=== PATIENT | male | born 1990 | race Caucasian/White ===

== ENCOUNTER 2017-03-10 04:31 | Inpatient (IN) | payer OTHER ==
[~2017-03-10] VITALS: Ht 182.9 cm; Wt 84.5 kg
--- NOTE | ~2017-03-10 | DS ---
Unit #: [id number] #: [id number] Patient: KATHERNIE OCAMPO [id number] [facility] [address]. [place], [place] [address] [id number] I MR#: [id number] NAME: KATHERINE OCAMPO. ROOM: 218 Age: 26 Sex: M Admission Date: 03/10/2017 : 1990 Discharge Date: 03/13/2017 Attending Physician: Christ Nogueira M.D. Primary Care Physician: Primary Care Physician No DISCHARGE SUMMARY REASON FOR ADMISSION Heroin overdose/acute hypoxic respiratory failure. HISTORY OF PRESENT ILLNESS/HOSPITAL COURSE Please see H and P for complete details. Essentially, the patient presented to outside facility, found unresponsive likely secondary to heroin overdose. He was given Narcan and became agitated. Airway was compromised. Subsequently, the patient was sedated, intubated, and transferred to [facility] for further evaluation. 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 The patient was gradually extubated to room air. He has been otherwise stable. He was appropriately treated for aspiration pneumonia/pneumonitis with IV Zosyn which has been transitioned to p.o. Augmentin at the time of discharge. Appropriate electrolytes or corrections were done. Extensive counseling was also done with the patient in regard to dangers and harms of heroin. He states that tomorrow, March 18, 2017, he will be checking into [facility] drug recovery program. He has already discussed that with his parents as well. He is well aware of the overall long-term harm of heroin overdose including possible if he continues down current path. The patient currently is clinically stable for discharge. FINAL DISCHARGE DIAGNOSES 1. Acute hypoxic respiratory failure, now resolved. 2. Heroin overdose. 3. Presumed aspiration pneumonitis/pneumonia. FINAL DISCHARGE MEDICATIONS Augmentin 875 mg p.o. b.i.d. x5 days. CONDITION ON DISCHARGE Stable. DISCHARGE DISPOSITION Home. Please note the patient's overall long-term prognosis is poor if he continues to use heroin and/or IV drugs. His life expectancy is likely less than 6 months, and the patient is well aware. Dictated by... Christ Nogueira M.D. ISN/shelly Unit #: [id number] #: [id number] Patient: KATHERINE OCAMPO TD: 03/16/2017 09:30 JOB #: [id number] DISCHARGE SUMMARY Page 1 of 1 X Christ Nogueira MD DISCHARGE SUMMARY
--- NOTE | ~2017-03-10 | CO ---
Unit #: [id number] #: [id number] Patient: KATHERINE EVANS [id number] [address] [place], [place] [address] [id number] I MR#: [id number] NAME: KATHERINE EVANS. ROOM: [facility] Age: 26 Sex: M Admission Date: 03/10/2017 : 1990 Attending Physician: Christ Nogueira M.D. Primary Care Physician: No Primary Care Physician CONSULTATION REPORT Mr. Evans is a 26-year-old white male with a history of polysubstance abuse, who was admitted to the Intensive Care Unit at [facility] on a ventilator for respiratory failure. We were asked to see. Apparently he was dropped outside the emergency room at [facility]. Then, the emergency room was called where they found him in agonal respirations. He was given intranasal Narcan and taken into the code room, given 2 mg of IV Narcan and subsequently intubated. His chest x-ray initially showed no infiltrates. The followup chest x-ray post intubation showed ET-tube in good position, now with bilateral infiltrates favoring the upper and mid lung herr. He was then admitted to the emergency room at [facility]. Lab work here revealed arterial blood gases this morning 7.31, pCO2 of 48, pO2 of 130 on 100%, 5 of PEEP, tidal of 550, rate of 14, patient rate of 22. Chemistries - creatinine 0.8, BUN 12, glucose 93, calcium 7.5. AST and ALT 60 and 66. Alk. phos. normal. Troponin less than 0.03. Urine drug screen positive for amphetamines and opiates. Alcohol and salicylate and aspirin unremarkable. White blood cell count 8700, hematocrit 44, platelet count 147. Previous hepatitis panel negative. HIV negative in May 2014. No urinalysis was done. Apparently blood cultures were done at [facility]. PAST MEDICAL HISTORY Not possible from the patient. No family present. According to electronic medical records - past surgical history of appendectomy. Medical problems related to polysubstance abuse and nicotine dependence. SOCIAL HISTORY Unknown. Apparently smokes tobacco. Uses heroin. FAMILY HISTORY Unknown. Patient unable to give history. ALLERGIES No known allergies. REVIEW OF SYSTEMS Not possible, patient intubated. FAMILY HISTORY Unknown, patient intubated. PHYSICAL EXAMINATION GENERAL: White male, orally intubated, sedated on ventilator. Unit #: [id number] #: [id number] Patient: KATHERINE EVANS VITAL SIGNS: Blood pressure 132/74, pulse 92, respiratory rate 17, afebrile. HEENT: Normocephalic, atraumatic. Pupils equal, round, reactive. Sclerae nonicteric. Orally intubated. NG-tube in place. NECK: Supple. Trachea midline. No cervical or supraclavicular lymphadenopathy. LUNGS: Fairly clear bilaterally. CARDIAC: Regular rate and rhythm. Could not appreciate murmur, rub or gallop. ABDOMEN: Nontender. Bowel sounds present. No hepatosplenomegaly. EXTREMITIES: Without clubbing, cyanosis or edema. NEURO: Sedated on vent. Apparently, according to nursing, he had been agitated, moving all extremities. SKIN: Warm and dry. He has an abrasion posteriorly and has a right femoral line and left external jugular line and a peripheral line. DIAGNOSTIC STUDIES LABORATORY: Laboratory studies as noted and reviewed. IMAGING: Chest x-ray reviewed. IMPRESSION 1. Heroin overdose. 2. Acute respiratory failure, hypoxic respiratory failure. 3. Bilateral infiltrates. 4. Possible aspiration. 5. CHF versus narcotic related noncardiac edema. PLAN Vent support adjustment to maintain adequate oxygenation and ventilation. Sedation for now. Wean O2 as tolerated. Wean vent with improvement. Will check echocardiogram, BNP. Will cover with antibiotics and possible aspiration pneumonia. Will check sputum C and S. DVT and ulcer prophylaxis. Further recommendations pending this. Dictated by... Hector Shell M.D. SHARONDA/olga TD: 03/10/2017 13:07 JOB #: [id number] CONSULTATION REPORT Page 1 of 1 X Hector Shell MD X CONSULTATION REPORT
--- NOTE | ~2017-03-10 | CR72 ---
[facility] A Service of [facility] & [facility] RADIOLOGY TEXT RESULTS PATIENT: KATHERINE OCAMPO LOCATION: [place] [address] : [birth year] UNIT #: [id number] AGE: [address]: Christ Nogueira MD SEX: M ORDER DR: [id number] [facility] [address] [place], [place] [address] [id number] I MR#: [id number] Acc #: [id number] NAME: KATHERINE OCAMPO. : 1990 SEX: M STUDY DATE/TIME: 03/12/2017 4:35 UNIT: [facility] ROOM: [facility] STUDY DESCRIPTION: CR Chest Single View Portable Attending Physician: Christ Nogueira M.D. Ordering Physician: Physician Non-Staff Primary Care Physician: Primary Care Physician No MEDICAL IMAGING REPORT This report is preliminary unless electronic signature is present EXAM Chest x-ray, 03/12/2017 HISTORY Respiratory failure. Extubation. TECHNIQUE AP portable chest x-ray FINDINGS The exam shows shallow lung expansion following extubation since yesterday. NG tube has also been removed. Mildly increased interstitial markings throughout both lungs, improved since 03/10/2017 and 03/11/2017. Heart size normal. No pneumothorax or visible pleural effusion. IMPRESSION 1. Shallow lung expansion following extubation. 2. Mildly increased interstitial markings, improved since prior exams. Dictated by... Tutu Han M.D. THIS IS AN ELECTRONICALLY VERIFIED REPORT Tutu Han M.D. at 03/12/2017 3:54 PM Andres TD: 03/12/2017 12:50 JOB #: [id number] MEDICAL IMAGING REPORT Page 1 of 1 COPY
--- NOTE | ~2017-03-10 | CR72 ---
[facility] A Service of [facility] & [facility] RADIOLOGY TEXT RESULTS PATIENT: KATHERINE OCAMPO LOCATION: [address] : [birth year] UNIT #: [id number] AGE: [address]: Christ Nogueira MD SEX: M ORDER DR: [id number] [facility] [address]. [place], [place] [address] [id number] I MR#: [id number] Acc #: [id number] NAME: KATHERINE OCAMPO. : 1990 SEX: M STUDY DATE/TIME: 03/11/2017 10:27 UNIT: [facility] ROOM: [facility] STUDY DESCRIPTION: CR Chest Single View Portable Attending Physician: Christ Nogueira M.D. Ordering Physician: Hector Shell M.D. Primary Care Physician: No Primary Care Physician MEDICAL IMAGING REPORT This report is preliminary unless electronic signature is present EXAM Portable chest HISTORY Shortness of air for a day, wean protocol. COMPARISON 03/10/2017 FINDINGS Endotracheal tube remains in satisfactory position. Interval placement of a nasogastric tube with decompression of the stomach. Distal tip well below the GE junction. Marked improvement in bilateral airspace opacities which may represent resolving pulmonary edema or ARDS. Heart and mediastinum unremarkable. No airspace disease or sizeable effusions. No pneumothorax. Dictated by... Rubina Burgess M.D. THIS IS AN ELECTRONICALLY VERIFIED REPORT Rubina Burgess M.D. at 03/11/2017 5:02 PM ANDREY/christal TD: 03/11/2017 14:59 JOB #: [id number] MEDICAL IMAGING REPORT Page 1 of 1 COPY
--- NOTE | ~2017-03-10 | HP ---
Unit #: [id number] #: [id number] Patient: KATHERINE OCAMPO [id number] [facility] [address] [place], [place] [address] [id number] I MR#: [id number] NAME: KATHERINE OCAMPO. ROOM: [facility] Age: 26 Sex: M Admission Date: 03/10/2017 : 1990 Attending Physician: Christ Nogueira M.D. Primary Care Physician: No Primary Care Physician HISTORY AND PHYSICAL REASON FOR ADMISSION Acute hypoxic respiratory failure, aspiration pneumonitis/pneumonia, heroin overdose. HISTORY OF PRESENT ILLNESS The patient is currently intubated on vent support and sedated. Therefore, this history of present illness as well as review of systems has been done after chart review and discussion with staff. There are no family members who are present at bedside currently. The patient is a 26-year-old male, apparently who was with several friends. He was found to be unconscious after taking several drugs. Details are unclear. They tried to place the patient in and around ice trying to wake him up. He did not wake up. He was subsequently dropped off at [facility]. There he received Narcan as well as appropriate supportive therapy. He became awake and slightly agitated. He also had several emesis episodes. He was subsequently sedated and placed on Unasyn and placed on ventilatory support. The decision was made for the patient to be transferred to [facility] ICU for further evaluation. PAST MEDICAL HISTORY Prior history of substance abuse. Hospital admission to [facility] in 2013. PAST SURGICAL HISTORY Appendectomy. SOCIAL HISTORY Positive illicit drug use. FAMILY HISTORY Unable to be obtained and relatively noncontributory. ALLERGIES No known drug allergies. HOME MEDICATIONS None. REVIEW OF SYSTEMS Limited secondary to current condition. PHYSICAL EXAMINATION Unit #: [id number] #: [id number] Patient: KATHERINE OCAMPO GENERAL: The patient is intubated and sedated, on vent support. VITALS: At outside facility, temperature 99, pulse 138, blood pressure 147/121. HEENT: Atraumatic, normocephalic. Eyes, normal conjunctivae. Pinpoint pupils. NECK: Supple. LUNGS: Clear. Diminished in the lower lungs. HEART: S1 and S2 without murmur. DIAGNOSTIC STUDIES LABORATORY: Initial studies performed at outside facility showed ABG with pO2 36, lactic acid 3.4, pH 7.29, potassium 2.9, blood glucose 350, ALT and ALT 75 and 78, white blood cell count 15.8. Urine tox positive for amphetamines, opioids. Negative for alcohol. Creatinine level at outside facility 1.13. ASSESSMENT 1. Acute hypoxic respiratory failure, likely secondary to heroin overdose. 2. Aspiration pneumonitis/pneumonia, probable. 3. Hypokalemia. 4. Elevated blood sugar, unclear of diabetes history. 5. Elevated LFTs, likely shock liver. 6. Elevated lactic acid level/sepsis. PLAN Admission. ICU placement. 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 Routine laboratory studies. A1c. Accu-Cheks q.6 h. while on the vent. Await other family members to ascertain details. Once extubated, psychiatric consult. Possible [facility] evaluation. Blood cultures. Further hospital course pending above evaluation. PROGNOSIS Guarded. Dictated by Mariana Tafoya/carmenza TD: 03/10/2017 11:37 JOB #: [id number] HISTORY AND PHYSICAL Page 1 of 1 X Christ Nogueira MD X HISTORY AND PHYSICAL
--- NOTE | ~2017-03-10 | CT71 ---
[facility] A Service of [facility] & [facility] RADIOLOGY TEXT RESULTS PATIENT: KATHERINE OCAMPO LOCATION: [address] : [birth year] UNIT #: [id number] AGE: [address]: Christ Nogueira MD SEX: M ORDER DR: [id number] [facility] [address] [facility]. [place], [place] [address] [id number] I MR#: [id number] Acc #: [id number] NAME: KATHERINE OCAMPO. : 1990 SEX: M STUDY DATE/TIME: 03/10/2017 20:17 UNIT: [facility] ROOM: [facility] STUDY DESCRIPTION: CT Head Wo Contrast Attending Physician: Christ Nogueira M.D. Ordering Physician: Christ Nogueira M.D. Primary Care Physician: No Primary Care Physician MEDICAL IMAGING REPORT This report is preliminary unless electronic signature is present EXAM Head CT without. HISTORY Pain, heroin overdose 03/09/2017, found down, on a ventilator. Drug abuse, decreased responsiveness. COMMENT Routine noncontrast head CT is reviewed. This CT exam was performed with one or more of the following radiation dose reduction techniques: automatic exposure control, adjustment of mA and/or kV according to patient size, and iterative reconstruction. COMPARISON There is previous from 10/20/2016. FINDINGS There is no displaced calvarial fracture. The paranasal sinuses are partially opacified with mucosal disease, and there are air-fluid levels in the sphenoid sinuses and ethmoid air cells. I suspect a component of [id number]-[id number] sinusitis. Probably also a small air-fluid level in the left maxillary sinus. This is worse on comparison to previous. Small amount of opacification of the under-pneumatized left side mastoid air cells. There is no evidence for acute intracranial hemorrhage or extraaxial fluid collection. The ventricles are normal in size and configuration. At this time the mosqueda-white junction is maintained and the basilar cisterns are patent. There is no intracranial mass effect. If symptoms persist and the patient is a candidate consider correlation with a follow-up MRI. IMPRESSION 1. No definite acute intracranial abnormality. At this time, the [facility] A Service of [facility] & [facility] RADIOLOGY TEXT RESULTS PATIENT: KATHERINE OCAMPO LOCATION: [address] : [birth year] UNIT #: [id number] AGE: [address]: Christ Nogueira MD SEX: M ORDER DR: mosqueda-white junction is still relatively well-maintained. If neurologic symptoms persist, however, consider correlation with followup MRI if the patient is candidate. 2. Paranasal sinus disease with air-fluid levels consistent with likely gxeet-kq-vsrcjji sinusitis worse when comparison is made to 10/20/2016. STAT * RESULT Dictated by... Dona Brink M.D. THIS IS AN ELECTRONICALLY VERIFIED REPORT Dona Brink M.D. at 03/10/2017 10:56 PM KASSIDY/lefty TD: 03/10/2017 21:04 JOB #: [id number] MEDICAL IMAGING REPORT Page 1 of 1 COPY
[2017-03-10 06:59] LABS: BASOPHIL% 0.3 % (0-2.5); EOSINOPHIL% 0.2 % (0.0-7.0); LYMPHOCYTE# 0.8 X10e3 (1.0-3.5); LYMPHOCYTE% 9.3 % (17.0-45.0); MEAN CORPUSCULAR HEMOGLOBIN 30.6 PG (28-34); MEAN PLATELET VOLUME 8.6 FL (6.5-11.5); MONOCYTE# 0.4 X10e3 (0-1.0); MONOCYTE% 4.6 % (3.0-12.0); NEUTROPHIL# 7.4 X10e3 (1.5-7.1); NEUTROPHIL% 85.6 % (40-75); PLATELET COUNT 147 X10e3 (140-420); RED BLOOD COUNT 4.89 X10e (3.90-5.60); RED CELL DISTRIBUTION WIDTH 14.4 % (11.0-15.5); WHITE BLOOD COUNT 8.7 X10e3 (4.0-10.5)
[2017-03-10 07:00] LABS: DIFF IND NO
[2017-03-10 07:10] LABS: INR 1.1; PARTIAL THROMBOPLASTIN TIME 25.4 SECONDS (23.5-31.3); PROTHROMBIN TIME (PATIENT) 12.1 SECONDS (10.0-11.7)
[2017-03-10 07:26] LABS: ARTERIAL BLD GAS O2 SATURATION 97.3 % (90.0-100.0); ARTERIAL BLOOD GAS CARBOXY HB 0.8 %sat (0.0-9.0); ARTERIAL BLOOD GAS HCO3 24.7 mmol/L; ARTERIAL BLOOD GAS MET HB 0.7 %sat (0.0-2.0); ARTERIAL BLOOD GAS PCO2 48.9 mmHg (35.0-45.0); ARTERIAL BLOOD GAS pH 7.311 (7.350-7.450)
[2017-03-10 07:27] LABS: ARTERIAL BLOOD GAS ART SITE RIGHT RADIAL; ARTERIAL BLOOD GAS DELIVERY VENT; ARTERIAL BLOOD GAS VENT MODE AC; ARTERIAL DRAW? YES
[2017-03-10 07:38] LABS: ALBUMIN SERUM 3.7 g/dL (3.5-5.0); BILIRUBIN,TOTAL 0.9 mg/dL (0.2-2.0); CALCIUM SERUM 7.5 mg/dL (8.4-10.2); CREATININE SERUM 0.8 mg/dL (0.6-1.4); GLOM FILT RATE Estimated 125.1 mL/min (>60); PROTEIN TOTAL SERUM 6.1 g/dL (6.0-8.3)
[2017-03-10 08:08] LABS: %MB 1.7 % (0.0-4.0); MB 3.9 ng/ml
[2017-03-10 14:58] LABS: %MB 1.7 % (0.0-4.0); MB 4.4 ng/ml
[2017-03-10 17:24] LABS: URINE APPEARANCE CLOUDY; URINE BILIRUBIN NEG (NEG); URINE BLOOD NEG (NEG); URINE COLOR AMBER; URINE GLUCOSE NORM (NORM); URINE KETONE 1+ (NEG); URINE LEUKOCYTE ESTERASE 2+ (NEG); URINE NITRATE NEG (NEG); URINE PROTEIN NEG (NEG); URINE UROBILINOGEN NORM (NORM)
[2017-03-10 17:40] LABS: CULTURE INDICATED? NO; URBCS1 AUWI 0-2 /[HPF] (0-2); URINE AMORPHOUS SEDIMENT AMORP URATES; UWBCS1 AUWI 0-2 (0-5)
[2017-03-10 19:10] LABS: %MB 1.6 % (0.0-4.0); MB 3.3 ng/ml
[2017-03-11 04:32] LABS: ARTERIAL BLD GAS O2 SATURATION 97.8 % (90.0-100.0); ARTERIAL BLOOD GAS CARBOXY HB 0.5 %sat (0.0-9.0); ARTERIAL BLOOD GAS HCO3 25.4 mmol/L; ARTERIAL BLOOD GAS MET HB 1.2 %sat (0.0-2.0); ARTERIAL BLOOD GAS PCO2 43.8 mmHg (35.0-45.0); ARTERIAL BLOOD GAS pH 7.371 (7.350-7.450)
[2017-03-11 04:36] LABS: ARTERIAL BLOOD GAS ALLEN TEST NORMAL; ARTERIAL BLOOD GAS ART SITE LEFT RADIAL; ARTERIAL BLOOD GAS DELIVERY VENT; ARTERIAL BLOOD GAS VENT MODE AC; ARTERIAL DRAW? YES
[2017-03-11 06:30] LABS: BASOPHIL% 0.3 % (0-2.5); EOSINOPHIL# 0.2 X10e3 (0-0.7); EOSINOPHIL% 1.9 % (0.0-7.0); HEMATOCRIT 35.4 % (38.0-50.0); LYMPHOCYTE# 1.4 X10e3 (1.0-3.5); LYMPHOCYTE% 17.5 % (17.0-45.0); MEAN CELL VOLUME 91.1 FL (83-96); MEAN CORPUSCULAR HEMOGLOBIN 31.3 PG (28-34); MEAN CORPUSCULAR HGB CONC 34.4 g/dL (30-36); MEAN PLATELET VOLUME 8.9 FL (6.5-11.5); MONOCYTE# 0.8 X10e3 (0-1.0); MONOCYTE% 10.1 % (3.0-12.0); NEUTROPHIL# 5.5 X10e3 (1.5-7.1); NEUTROPHIL% 70.2 % (40-75); PLATELET COUNT 113 X10e3 (140-420); RED BLOOD COUNT 3.89 X10e (3.90-5.60); RED CELL DISTRIBUTION WIDTH 14.5 % (11.0-15.5); WHITE BLOOD COUNT 7.8 X10e3 (4.0-10.5)
[2017-03-11 06:48] LABS: DIFF IND NO; HEMOGLOBIN 12.2 gm/dL (13.0-16.0)
[2017-03-11 07:57] LABS: BUN/CREATININE RATIO 14.28; CALCIUM SERUM 7.9 mg/dL (8.4-10.2); CREATININE SERUM 0.7 mg/dL (0.6-1.4); GLOM FILT RATE Estimated 132.1 mL/min (>60); POTASSIUM 3.7 mmol/L (3.5-5.1)
[2017-03-11 12:08] LABS: ARTERIAL BLD GAS O2 SATURATION 98.4 % (90.0-100.0); ARTERIAL BLOOD GAS CARBOXY HB 0.4 %sat (0.0-9.0); ARTERIAL BLOOD GAS HCO3 25.4 mmol/L; ARTERIAL BLOOD GAS MET HB 0.8 %sat (0.0-2.0); ARTERIAL BLOOD GAS PCO2 42.7 mmHg (35.0-45.0); ARTERIAL BLOOD GAS pH 7.382 (7.350-7.450)
[2017-03-11 12:09] LABS: ARTERIAL BLOOD GAS ALLEN TEST N; ARTERIAL BLOOD GAS ART SITE RIGHT RADIAL; ARTERIAL BLOOD GAS DELIVERY VENT; ARTERIAL BLOOD GAS VENT MODE CPAP 5; ARTERIAL DRAW? YES
[2017-03-12 08:01] LABS: HEMOGLOBIN 12.4 gm/dL (13.0-16.0); MEAN CELL VOLUME 89.6 FL (83-96); MEAN CORPUSCULAR HEMOGLOBIN 30.9 PG (28-34); MEAN CORPUSCULAR HGB CONC 34.5 g/dL (30-36); MEAN PLATELET VOLUME 8.5 FL (6.5-11.5); RED BLOOD COUNT 4.01 X10e (3.90-5.60); RED CELL DISTRIBUTION WIDTH 14.2 % (11.0-15.5)
[2017-03-12 08:48] LABS: BLOOD UREA NITROGEN <5 mg/dL (9-23); BUN/CREATININE RATIO 8.33; CALCIUM SERUM 7.9 mg/dL (8.4-10.2); CARBON DIOXIDE 27 mmol/L (22-31); CHLORIDE 110 mmol/L (100-111); CREATININE SERUM 0.6 mg/dL (0.6-1.4); GLOM FILT RATE Estimated 140.8 mL/min (>60); GLUCOSE FASTING 100 mg/dL (70-110); MAGNESIUM 1.7 mg/dL (1.6-3.0); POTASSIUM 3.3 mmol/L (3.5-5.1); SODIUM 140 mmol/L (135-145)
[2017-03-13 05:28] LABS: BASOPHIL% 0.6 % (0-2.5); EOSINOPHIL# 0.3 X10e3 (0-0.7); EOSINOPHIL% 4.7 % (0.0-7.0); HEMATOCRIT 35.8 % (38.0-50.0); HEMOGLOBIN 12.4 gm/dL (13.0-16.0); MEAN CELL VOLUME 90.4 FL (83-96); MEAN CORPUSCULAR HEMOGLOBIN 31.2 PG (28-34); MEAN CORPUSCULAR HGB CONC 34.5 g/dL (30-36); MEAN PLATELET VOLUME 8.6 FL (6.5-11.5); MONOCYTE# 0.5 X10e3 (0-1.0); MONOCYTE% 7.9 % (3.0-12.0); NEUTROPHIL% 57.8 % (40-75); PLATELET COUNT 174 X10e3 (140-420); RED BLOOD COUNT 3.96 X10e (3.90-5.60); RED CELL DISTRIBUTION WIDTH 14.1 % (11.0-15.5); WHITE BLOOD COUNT 6.9 X10e3 (4.0-10.5)
[2017-03-13 05:45] LABS: DIFF IND NO
[2017-03-13 07:05] LABS: MAGNESIUM 1.5 mg/dL (1.6-3.0); POTASSIUM 3.2 mmol/L (3.5-5.1)
[2017-03-13 07:20] LABS: CALCIUM SERUM 8.1 mg/dL (8.4-10.2); CREATININE SERUM 0.6 mg/dL (0.6-1.4); GLOM FILT RATE Estimated 140.8 mL/min (>60); POTASSIUM 3.4 mmol/L (3.5-5.1)
[2017-03-13] MEDS ORDERED: AUGMENTIN PO (12:38)
== END 2017-03-13 13:17 | disposition home or self-care (01) | DRG 917 ==
LOC: CICCU3 04:31 → C2A 03-12 15:59
PROVIDERS: Family Medicine; Internal Medicine
PROC: B246YZZ Ultrasonography of Right and Left Heart using Other Contrast (ICD-10-PCS; principal; 2017-03-10)
PROC: 5A1945Z Respiratory Ventilation, 24-96 Consecutive Hours (ICD-10-PCS; 2017-03-10)
PROC: 0BH17EZ Insertion of Endotracheal Airway into Trachea, Via Natural or Artificial Opening (ICD-10-PCS; 2017-03-10)
DX: T40.1X1A Poisoning by heroin, accidental (unintentional), initial encounter (principal); J96.01 Acute respiratory failure with hypoxia; J69.0 Pneumonitis due to inhalation of food and vomit; F17.210 Nicotine dependence, cigarettes, uncomplicated; E87.6 Hypokalemia; Z90.49 Acquired absence of other specified parts of digestive tract; D69.6 Thrombocytopenia, unspecified; J32.9 Chronic sinusitis, unspecified; F15.10 Other stimulant abuse, uncomplicated; F11.10 Opioid abuse, uncomplicated
CPT/HCPCS: 36600; 70450; 71010; 80048; 80053; 81003; 82550; 82553; 82803; 82947; 83036; 83735; 83880; 84132; 84484; 85025; 85027; 85610; 85730; 87070; 87205; 87806; 93306; 94002; 94003; 94640; 94760; 94761; C9113; J2543; J3010; J3475